=== PATIENT | female | born 1945 | race Caucasian/White ===

== ENCOUNTER → 2023-09-06 | Outpatient (CLI) | payer MEDICARE ==
--- NOTE | 2023-09-06 15:00 | PE ---
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 Images are reviewed on the computer in the coronal, a xial, and sagittal planes. Reconstructed rotating images are created on independent workstation and reviewed on the computer. A non-contrast CT is performed in conjunction with the PET scan. Glucose level 92 mg/dL CT DLP: 716 mGycm, Automated exposure control for dose reduction was used. COMPARISON: CT None, PET/CT 06/06/2023, 02/16/2023, FINDINGS: Mediastinal SUV mean is 2.0. Hepatic parenchyma SUV mean is 2.6. SKULL BASE AND NECK: No suspicious radiotracer activity. CHEST, MEDIASTINUM, AND HILAR REGION: No suspicious radiotracer activity. ABDOMEN AND PELVIS: No suspicious radiotracer activity. MUSCULOSKELETAL STRUCTURES: Large fluid collections in the right inguinal region are no longer visualized. There is a couple prom inent lymph nodes max SUV 2.3. OTHER CT: Atherosclerosis of the arterial vasculature. Right chest wall [id number] with tip termin ating towards the head. Heart is mildly enlarged for size. The gallbladder surgically absent. Postsur gical changes to the gastroesophageal junction with moderate hiatal hernia. Peripelvic renal cysts bi laterally. IMPRESSION: Positive response to therapy with decrease in right lower extremity cystic lesions with FDG activity. There remains some lymph nodes present with FDG levels near background. No new or enlarging lesions identified.
== END | disposition home or self-care (01) ==
LOC: RADPETMAIN 10:51
PROVIDERS: ATTEND Internal Medicine Hematology & Oncology
DX: C85.15 Unspecified B-cell lymphoma, lymph nodes of inguinal region and lower limb (principal)
CPT/HCPCS: 78815; A9552

== ENCOUNTER → 2024-02-22 | Outpatient (CLI) | payer MEDICARE ==
--- NOTE | 2024-02-22 15:28 | PE ---
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 Images are reviewed on the computer in the coronal, axial, and sagittal planes. Reconstructed rotating images are created on independent workstation and reviewed on the computer. A non-contrast CT is performed in conjunction with the PET scan. Glucose level 111 mg/dL CT DLP: 863.48 mGycm, Automated exposure control for dose reduction was used. COMPARISON: CT None, PET/CT 09/06/2023, 06/06/2023, MRI: None FINDINGS: Mediastinal SUV mean is 2.2. Hepatic parenchyma SUV mean is 2.8. SKULL BASE AND NECK: No suspicious radiotracer activity. CHEST, MEDIASTINUM, AND HILAR REGION: No suspicious radiotracer activity. ABDOMEN AND PELVIS: No suspicious radiotracer activity. MUSCULOSKELETAL STRUCTURES: Resolution of right inguinal adenopathy from prior examination. No suspic ious radiotracer uptake above background. Largest right inguinal lymph node measures 9 mm short axis with a maximum SUV of 1.9. OTHER CT: No new lymphadenopathy. Bilateral aphakia. Atherosclerosis of the arterial vasculature. Rig ht chest wall [id number] with tip terminating towards the head again. Right thyroid lobe 1 cm hypo dense nodule. Heart is mildly enlarged for size. The gallbladder is surgically absent. Postsurgical c hanges to the gastroesophageal junction with moderate hiatal hernia. Peripelvic renal cysts bilateral ly. Fibrotic changes in uterus with exophytic calcified fibroid along the posterior fundus. Few scatt ered colonic diverticula. Post surgical changes in the left femoral region. Multilevel degenerative c hanges of the spine. Postsurgical changes of bilateral total knee arthroplasty changes. Degenerative changes of both feet. IMPRESSION: Positive response to therapy with resolution of right inguinal adenopathy with largest right inguinal lymph node demonstrating radiotracer uptake just below background. No new suspicious radiotracer upt akiko.
== END | disposition home or self-care (01) ==
LOC: RADPETMAIN 10:41
PROVIDERS: ATTEND Internal Medicine Hematology & Oncology
DX: C85.15 Unspecified B-cell lymphoma, lymph nodes of inguinal region and lower limb
CPT/HCPCS: 78816

== ENCOUNTER → 2024-09-04 | Outpatient (CLI) | payer MEDICARE ==
--- NOTE | 2024-09-05 11:18 | PE ---
EXAMINATION TYPE: PET CT fusion skull to thigh DATE OF EXAM: 09/04/2024 CLINICAL INDICATION:Female, 78 years old with history of C85.15 LYMPHOMA; TECHNIQUE: Following the intravenous administration of 9.51 mCi of F-18 FDG, whole body images are performed from the skull base to the Mid thigh. Images are reviewed on the computer in the coronal, axial, and sagittal planes. Reconstructed rotating images are created on independent workstation and reviewed on the computer. A non-contrast CT is performed in conjunction with the PET scan. Glucose level 99 mg/dL CT DLP: 736.88 mGycm, Automated exposure control for dose reduction was used. COMPARISON: CT None, PET/CT 02/22/2024, MRI: None FINDINGS: Mediastinal SUV mean is 1.7. Hepatic parenchyma SUV mean is . SKULL BASE AND NECK: No suspicious radiotracer activity. CHEST, MEDIASTINUM, AND HILAR REGION: No suspicious radiotracer activity. ABDOMEN AND PELVIS: No suspicious radiotracer activity. MUSCULOSKELETAL STRUCTURES: There remains no inguinal adenopathy . No suspicious radiotracer uptake a brandt background. Largest right inguinal lymph node remains stable around 9 mm in short axis with a ma ximum SUV of 1.5, previously 1.9. OTHER CT: Bilateral aphakia. Atherosclerosis of the arterial vasculature. Right chest wall [id number]-r-[id number] with tip terminating towa rds the head again. Right thyroid lobe 1 cm hypodense nodule. Mild cardiomegaly. Cholecystectomy changes. Postsurgical changes to the gastroesophageal junction with similar moderate hiatal hernia. Peripelvic renal cysts bilaterally. No abnormal uptake, no follow-up recommended. Fibroid changes in uterus with exophytic posterior fibroid. Colonic diverticula. Post surgical changes in the left femoral region. Multilevel degenerative changes of the spine. IMPRESSION: No new lymphadenopathy. No abnormal uptake identified. [facility], , 09/05/2024 11:15 AM
== END | disposition home or self-care (01) ==
LOC: RADPETMAIN 09:35
PROVIDERS: ATTEND Internal Medicine Hematology & Oncology
DX: C85.15 Unspecified B-cell lymphoma, lymph nodes of inguinal region and lower limb (principal); K57.30 Diverticulosis of large intestine without perforation or abscess without bleeding; K44.9 Diaphragmatic hernia without obstruction or gangrene; H27.03 Aphakia, bilateral; Z98.890 Other specified postprocedural states
CPT/HCPCS: 78815; A9552